=== PATIENT | female | born 1975 | race Caucasian/White ===

== ENCOUNTER → 2018-02-07 09:47 | Outpatient (CLI) | payer MEDICAID, SELFPAY ==
[2018-02-07 10:46] LABS: AST(SGOT) 19 U/L (15-37); Alanine Aminotransfer ALT/SGPT 20 U/L (13-56); Albumin, Serum 3.7 g/dL (3.2-5.0); Alkaline Phosphatase 54 U/L (45-117); Bilirubin, Direct 0.08 mg/dL (0.00-0.30); Cholesterol 224 mg/dL (200); Globulin 3.4 g/dL (2.2-4.2); High Density Lipoprotein 60 mg/dL; Protein, Total 7.1 g/dL (6.4-8.2); T4 Total, Thyroxin 8.3 ug/dL (4.8-13.9); Thyroid Stim Hormone (TSH) 2.25 uIU/mL (0.358-3.74); Triglycerides 58 mg/dL; Very Low Density Lipoprotein 12 mg/dL (5-40)
== END ==
PROVIDERS: Referring Provider Internal Medicine Cardiovascular Disease; Visit Provider Internal Medicine Cardiovascular Disease
DX: E78.5 Hyperlipidemia, unspecified (principal); R63.5 Abnormal weight gain
CPT/HCPCS: 36415; 80061; 80076; 84436; 84443

== ENCOUNTER → 2018-03-23 10:01 | Outpatient (CLI) | payer MEDICAID, SELFPAY ==
[2018-02-01 10:24] VITALS: BMI 25.8
[2018-03-23 10:48] LABS: Hematocrit 39.3 % (37-47); Hemoglobin 12.8 g/dl (12.0-15.0); Mean Corp Hgb Conc 32.6 g/gl (32-36); Mean Corpuscular Hgb 28.5 pg (27.0-32.0); Mean Corpuscular Volume 87.5 fL (81-99); Mean Platelet Vol. 8.9 fl (6.2-12.0); Platelet Count 301 K/mm3 (150-450); RBC Distribution Width SD 44.8 fl (35.1-43.9); Red Blood Count 4.49 M/mm3 (4.2-5.4); Scan Indicated on CBC? Y/N NO; White Blood Count 3.7 K/mm3 (4.4-11.0)
[2018-03-23 11:25] LABS: Vitamin B12 805 pg/mL (211-911); Vitamin D,25 Hydroxy 38.2 ng/mL (29.95-100.01)
[2018-03-23 11:32] LABS: ALB/GLOB Ratio 1.2 RATIO (0.9-2.4); AST(SGOT) 23 U/L (15-37); Alanine Aminotransfer ALT/SGPT 23 U/L (13-56); Albumin, Serum 4.1 g/dL (3.2-5.0); Alkaline Phosphatase 48 U/L (45-117); Anion Gap 4 (5-15); BUN 10 mg/dL (7-18); BUN/Creat Ratio 11.5 RATIO (10-20); Calcium,Total 8.8 mg/dL (8.5-10.1); Chloride 107 mmol/L (98-107); Creatinine, Serum 0.87 mg/dL (0.55-1.02); EST Glomerular Filtration Rate 76 mL/min (>60); Est Glom Filt Rate - Afr Amer 91 mL/min (>60); Globulin 3.4 g/dL (2.2-4.2); Glucose 71 mg/dL (74-106); Magnesium 2.4 mg/dL (1.6-2.6); Protein, Total 7.5 g/dL (6.4-8.2); Sodium Level 141 mmol/L (136-145)
[2018-03-23 12:29] LABS: Ferritin 16 ng/mL (8-252); Iron 77 ug/dL (50-170); Iron Binding Capacity,Total 384 ug/dL (250-450); PERCENT IRON SATURATION 20.1 % (15.0-55.0)
--- OUTSIDE RECORDS SUMMARY | 2018-05-18 18:31 | XMS RPT_ITS ---
:1975 Author Organization OHIP Care Team Providers Name Role Phone [facility] Primary Care Unavailable NARAYAN FERNÁNDEZ Attending Unavailable Iglesia Browne Attending Unavailable Primay Care Physicia, No Referring Unavailable Iglesia Browne Attending Unavailable Iglesia Browne Referring Unavailable Primay Care Physicia, No Primary Care Unavailable Iglesia Browne Referring Unavailable Primay Care Physicia, No Primary Care Unavailable Artem Estrada Attending Unavailable Iglesia Browne Attending Unavailable Iglesia Browne Referring Unavailable Primay Care Physicia, No Primary Care Unavailable SYDNEY PATEL Attending Unavailable Primay Care Physicia, No Primary Care Unavailable SYDNEY PATEL Referring Unavailable Iglesia Browne Attending Unavailable Iglesia Browne Referring Unavailable Primay Care Physicia, No Primary Care Unavailable Artem Estrada Consulting Unavailable Quigley, Don Attending Unavailable Quigley, Don Primary Care Unavailable NARAYAN FERNÁNDEZ Attending Unavailable PROBLEMS PROBLEMS DATE TYPE CONDITION / CODE ATTENDING STATUS SOURCE 04/03/2018 Active Other disturbances NARAYAN FERNÁNDEZ Active [facility] skin sensation [facility] Other / R20.8(ICD-10) [place] Rep[facility] 04/03/2018 Active Low back pain / NARAYAN FERNÁNDEZ Active [place] M54.5(ICD-10) [facility] Other [place] Repository 04/03/2018 Admitting Unknown / NARAYAN FERNÁNDEZ Active [facility] diagnosis [facility](Unknown[facility] Repository 04/04/2018 Unknown R07.9 - Chest SealArtem moseley Active [facility] pain, unspecified Community / R07.9(ICD-10) Hospital Repository 04/04/2018 Unknown Z12.4 - Encounter Artem Estrada Active [facility] for screening for Community malignant neoplasm [facility] / Repository Z12.4(ICD-10) 03/23/2018 Unknown Z00.00 - Encounter SYDNEY PATEL Active [facility] for general adult [facility] medical Hospital examination Repository without abnormal findings / Z00.00(ICD-10) 03/23/2018 Unknown E55.9 - Vitamin D SYDNEY PATEL Active [facility] deficiency, Community unspecified / Hospital E55.9(ICD-10) Repository 03/23/2018 Unknown Z79.899 - Other SYDNEY PATEL Active [facility] Community (current) drug Hospital therapy / Repository Z79.899(ICD-10) 02/07/2018 Unknown E78.5 - Iglesia Browne Active [facility] Hyperlipidemia, Community unspecified / Hospital E78.5(ICD-10) Repository 02/07/2018 Unknown R63.5 - Abnormal Iglesia Browne Active [facility] weight gain / Community R63.5(ICD-10) Hospital Repository PROCEDURES PROCEDURES No Procedure Records FoundRESULTS RESULTS ED NOTE Observed: 04/03/2018 Status: COMPLETED Source: [place] 1:07 PM CLINIC OTHER CAMPUS REPOSITORY HNO ID: [id number] Author: Susanna Barton) ARIELLE Blackburn Service: Emergency Medicine Author Type: Registered Nurse Type: ED Notes Filed: 04/03/2018 1:08 PM Note Text: No change in assessment CHEST 2 VIEWS Observed: 04/03/2018 Status: F Source: [facility] 10:20 AM HEALTH SYSTEM REPOSITORY Performed at [facility] APPROVED BY: RASHARD GUZMAN MD EXAMINATION: CHEST RADIOGRAPH (2 VIEW FRONTAL & LATERAL) CLINICAL HISTORY: Low back pain for 2 days. MQ: XC2_5 Comparison: None RESULT: Lines, tubes, and devices: None. Lungs and pleura: No consolidation. No pneumothorax. No pleural effusion. Cardiomediastinal silhouette: Normal cardiomediastinal silhouette. Other: No acute osseous abnormality. IMPRESSION: No acute radiographic abnormality. THORACIC SPINE 3 Observed: 04/03/2018 Status: F Source: [employer] 10:20 AM HEALTH SYSTEM REPOSITORY Performed at [facility] APPROVED BY: RASHARD GUZMAN MD TECHNIQUE: THORACIC SPINE 3 VIEWS, LUMBOSACRAL SPINE 2 OR 3 VIEWS HISTORY: Mid-back/T-spine pain, initial exam. Low back pain for 2 days. COMPARISON: None. THORACIC SPINE RESULT: Counting reference: First rib-bearing vertebra is considered T1. There are 12 paired ribs. Thoracic spine alignment on the frontal film is maintained. Visualized pedicles are intact. No fracture or compression deformity is identified. LUMBAR SPINE RESULT: Counting reference: Lumbosacral junction. For the purposes of this report, L4-5 is considered the level of the iliac crest. Vertebral body heights and disc space heights are maintained. No acute fracture is seen. Pedicles appear intact. SI joints are grossly preserved and symmetric. IMPRESSION: NO ACUTE FINDINGS OF THE THORACOLUMBAR SPINE. LUMBOSACRAL SPINE 2 OR Observed: 04/03/2018 Status: F Source: [facility] 3 VIEWS 10:20 AM HEALTH SYSTEM REPOSITORY Performed at [facility] APPROVED BY: RASHARD GUZMAN MD TECHNIQUE: THORACIC SPINE 3 VIEWS, LUMBOSACRAL SPINE 2 OR 3 VIEWS HISTORY: Mid-back/T-spine pain, initial exam. Low back pain for 2 days. COMPARISON: None. THORACIC SPINE RESULT: Counting reference: First rib-bearing vertebra is considered T1. There are 12 paired ribs. Thoracic spine alignment on the frontal film is maintained. Visualized pedicles are intact. No fracture or compression deformity is identified. LUMBAR SPINE RESULT: Counting reference: Lumbosacral junction. For the purposes of this report, L4-5 is considered the level of the iliac crest. Vertebral body heights and disc space heights are maintained. No acute fracture is seen. Pedicles appear intact. SI joints are grossly preserved and symmetric. IMPRESSION: NO ACUTE FINDINGS OF THE THORACOLUMBAR SPINE. CT HEAD W/O CONTRAST Observed: 04/03/2018 Status: F Source: [facility] 10:13 AM HEALTH SYSTEM REPOSITORY Performed at [facility] APPROVED BY: Keron Coley MD EXAMINATION: CT HEAD WITHOUT CONTRAST CLINICAL HISTORY: Leg weakness. Left leg numbness. TECHNIQUE: Axial images without IV contrast were obtained from the vertex to the foramen magnum. MQ: CTBWO_3 CT Dose-Length Product (DLP): 867 mGy*cm CT Dose Reduction Employed: mAs or kVp was manually adjusted based on either the patient size or age. COMPARISON: No prior available. RESULT: Post-operative change: None. Acute change: No evidence of an acute infarct or other acute parenchymal process. Hemorrhage: No evidence of acute intracranial hemorrhage. Mass Lesion / Mass Effect: There is no evidence of an intracranial mass or extraaxial fluid collection. No significant mass effect. Chronic change: None apparent. Parenchyma: There is no significant volume loss. The brain parenchyma is otherwise within normal limits for age. Ventricles: The ventricles are within normal limits of size and configuration for age. Paranasal sinuses and skull base: The visualized paranasal sinuses are grossly clear. The skull base and imaged soft tissues are unremarkable. IMPRESSION: CT head is within normal limits for patient age. ED PROV NOTE Observed: 04/03/2018 Status: COMPLETED Source: [place] 10:11 AM [facility] OTHER CAMPUS REPOSITORY HNO ID: [id number] Author: Ignacio (Blaze Nichols DO Service: Emergency Medicine Author Type: Resident Type: ED Provider Notes Filed: 04/03/2018 7:53 PM Note Text: Attestation signed by Narayan Fernández MD at 04/07/2018 3:29 PM Attending Note I evaluated the patient and personally participated in the swift components. I agree with the resident's findings and plan as documented and have discussed the case and management of the patient's care with the resident. Signature: Narayan Fernández MD Date: 04/07/2018 Time: 3:29 PM ED Provider Note Patient Name: Nader Ba SERVICE DATE: 04/03/18 History Patient presents with: Leg Weakness: pateint arrives ambulatory to triage with complaint of left leg weakness and numbness. also adds that she feels numbness into lower back. no injury or trauma. This is a 42 year old female with PMH of ovarian ca. S/p resection, depression, anxiety presenting to ED d/t multiple complaints of left lumbar paraspinal Pain, left hip pain that radiates into her left groin, and numbness with decreased sensation in her left leg and foot. Patient states that these symptoms started 2 days ago. She denies ever having these symptoms before in the past. Patient states that 3 areas of pain are distinct, that are not related. Paraspinal lumbar pain on the left is a dull cramping type pain, not worse with positioning. Patient describes left hip pain as if somebody tied a tight rope around her hip. Pain radiates into her left groin and vagina. She also states that there is some radiation from her hip into her left chest wall. She endorses left leg and foot numbness with decreased sensation. She denies any difficulty with ambulation. Patient denies any recent trauma. She endorses being fit, however stopped working out for a month and started back last week. She denies any history of strokes or DVTs. She is adopted, so does not know her family history. She denies any uniform weakness or numbness in her left arm and leg. Denies any recent urinary or fecal incontinence. She denies midline lower back pain. She does admit to some recent depressions, worse than usual, due to her 's diagnosis of cancer. PAST MEDICAL HISTORY Diagnosis Date - Ovarian ca (HCC) - Psychiatric disorder anxiety No past surgical history on file. No family history on file. Social History Social History Main Topics - Smoking status: Never Smoker - Smokeless tobacco: Never Used - Alcohol use No - Drug use: No - Sexual activity: Not on file ALLERGIES Allergen Reactions - Ciprofloxacin Hives - Hydrocodone Intolerance Review of Systems Constitutional: Negative for chills and fever. HENT: Negative for congestion and rhinorrhea. Respiratory: Negative for cough and shortness of breath. Cardiovascular: Negative for chest pain and leg swelling. Gastrointestinal: Negative for abdominal pain, constipation, diarrhea, nausea and vomiting. Genitourinary: Negative for dysuria and hematuria. Musculoskeletal: Positive for back pain. Negative for arthralgias and myalgias. Skin: Negative for rash and wound. Neurological: Positive for weakness and numbness. Negative for dizziness, light-headedness and headaches. Psychiatric/Behavioral: Negative for confusion and suicidal ideas. All other systems reviewed and are negative. Physical Exam BP 132/83 Pulse 60 Temp (Src) 98.1 (Oral) Resp 16 Ht 5' 8 (1.73m) Wt 159 lb (72.1kg) SpO2 100% BMI 24.18 kg/(m2). Physical Exam Constitutional: She is oriented to person, place, and time. She appears well-developed and well-nourished. No distress. HENT: Head: Normocephalic and atraumatic. Eyes: Conjunctivae and EOM are normal. Neck: Normal range of motion. Neck supple. Cardiovascular: Normal rate and regular rhythm. Pulmonary/Chest: Effort normal. No stridor. No respiratory distress. Abdominal: Soft. She exhibits no distension. There is no tenderness. Musculoskeletal: Normal range of motion. She exhibits no edema or deformity. Neurological: She is alert and oriented to person, place, and time. She has normal reflexes. She displays no atrophy and no tremor. A sensory deficit (4/5 on left foot dorsal and plantar surface. 5/5 right foot) is present. No cranial nerve deficit (chronic right eye brow weakness). She exhibits abnormal muscle tone (left dorsiflexion minimally decreased). She displays a negative Romberg sign. She displays no seizure activity. Coordination and gait normal. GCS eye subscore is 4. GCS verbal subscore is 5. GCS motor subscore is 6. She displays no Babinski's sign on the right side. She displays no Babinski's sign on the left side. Skin: Skin is warm and dry. No rash noted. She is not diaphoretic. Psychiatric: She has a normal mood and affect. Thought content normal. Diagnostic Testing ED Labs Ordered and Reviewed - No data to display Procedures ED Course / Clinical Impression ED Course as of Apr 03 1951 Ignacio (Joseph) Magdalena's Documentation Sun Apr 03, [address] Lopez recomends outpatient follow up 1946 WBC: (!) 3.82 Clinical Impressions as of Apr 03 1951 Decreased sensation of leg Acute left-sided low back pain, with sciatica presence unspecified MDM / Disposition / Plan This is a 42-year-old female with past medical history of ovarian cancer status post resection, depression anxiety presenting ED due to multiple complaints of left lumbar paraspinal pain, left hip pain that radiates into the left groin, and numbness with decreased sensation in her left leg and foot. Patient presents today with brought in vague symptoms. Her symptoms could include anything from muscle strain all the way up to metastatic disease or autoimmune demyelinating disorder. Workup included CBC, BMP, UA, ESR, CRP, x-ray of thoracic and lumbar spine, CT head. X-ray of thoracic and lumbar spine were ordered in order to look for any metastases to spinal column. CT head ordered to look for any lesions indicative of multiple sclerosis. X-ray of thoracic lumbar spine unremarkable for any acute pathology. CT of brain negative for any intracranial pathology. Labwork only remarkable for a white blood cell count of 3.82, however patient states that she has a history of a low white count. White count is only borderline low at 3.82, with low end of normal being 3.98. Neurology was consulted and 50 recommended patient be admitted or observed for MRI. Neurologist was unimpressed with patient's physical exam states that this is not an emergent symptom. Neurologist recommends patient be seen in outpatient setting for MRI. Patient was given referral to neurologist and told to follow-up. Patient agrees to plan and is happy with that as well. Update: Upon discharge, patient states that when lying in left lateral, position she fells a pain in her left buttocks that travels posterior aspect of her thigh. This indicative of appear former syndrome or sciatica. I told patient to make sure she mentioned this when she followed up with neurology as as a potential cause of her symptoms. Patient discharged home. On discharge patient is hemodynamically stable and in no acute distress. DispositionThe patient was discharged. Condition at disposition is stable and unchanged. SIGNATURE: Ignacio Nichols DO Attending Note I evaluated the patient and personally participated in the swift components. I agree with the resident's findings and plan as documented and have discussed the case and management of the patient's care with the resident. 42-year-old female comes in for 2 days of left leg pain and weakness. patient states that her leg just feels weaker than normal. Also having some numbness. She states it feels like is a band wrapped around the proximal part of her leg. Denies any trauma to it no previous episodes. She states she has a remote history of ovarian cancer and had to go through chemotherapy when she was 14 years old. No problems since then but she also states she has not followed up with any doctors in many years. Denies any fevers or chills no sick contacts no headache no blurry vision no weakness in arms. on exam vital signs reviewed heart regular rate and rhythm lungs clear to auscultation abdomen is soft nontender normal bowel sounds. Upper extremity is for joint distal pulses and sensation intact. Fernández from his pharyngeal distal pulses intact strength 5 out of 5 in both leg lower extremities there is slight trembling in the left lower extremity 1 strength testing the strength was 5 out of 5 but the right leg did have some contractions. Sensation was slightly different with sharp as well as pressure sensation in the lower extremity. Signature: Narayan Fernández MD Date: 04/03/2018 Time: 3:24 PM Ignacio Nichols DO Resident 04/03/18 195 Narayan Fernández MD 04/07/18 1529 URINALYSIS ROUTINE Collected: 04/03/2018 Status: F Source: [facility] 10:10 AM HEALTH SYSTEM REPOSITORY TYPE CODE TESTS RESULT OUT OF REFERENCE UNITS RANGE LAB COLOR(LOIN C) Urine Color YELLOW LAB APPUR(LOIN C) Urine Appearance CLOUDY LAB GLUUR(LOIN Negative mg/dL C) Glucose Urine NEGATIVE LAB KETON(LOIN Negative mg/dL C) Ketone Urine NEGATIVE LAB HGBUR(LOIN Negative C) Hemoglobin,Urine NEGATIVE LAB PROTU(LOIN Negative mg/dL C) Protein Urine NEGATIVE LAB NITRI(LOIN Negative C) Nitrites Urine NEGATIVE LAB BILIU(LOIN Negative C) Bilirubin Urine NEGATIVE LAB SPG(LOINC) 1.005-1.030 Specific [place], Ur 1.004 LAB PHUR(LOINC 5.0-8.0 ) pH,Urine 7.5 LAB UROBI(LOIN 0.0-1.0 EU/dL C) Urobilinogen,Ur 0.2 LAB LEUKO(LOIN Negative C) Leukocytes NEGATIVE Esterase LAB RBCU1(LOIN 0.0-5.0 /hpf C) RBC,Urine 1.3 LAB WBCU1(LOIN 0.0-5.0 /hpf C) WBC, Urine 1.0 LAB EPIT1(LOIN 0.0-5.0 /hpf C) Ep Cells Urine 4.2 LAB BACT1(LOIN None C) Bacteria Urine NONE LAB HYCA1(LOIN 0.0-1.0 /lpf C) Hyaline Cast 0.0 Performed By: #### URIN2 #### [place] [address] HEMOGRAM/DIFF Collected: 04/03/2018 Status: F Source: [facility] 10:10 AM HEALTH SYSTEM REPOSITORY TYPE CODE TESTS RESULT OUT OF REFERENCE UNITS RANGE LAB WBC(LOINC) 3.98-10.04 thou/cmm Low WBC 3.82 LAB RBC(LOINC) 3.93-5.22 mil/cmm RBC 4.82 LAB HGB(LOINC) 11.2-15.7 g/dL Hgb 13.9 LAB HCT(LOINC) 34.1-44.9 % Hct 42.8 LAB MCV(LOINC) 79.4-94.8 fl MCV 88.8 LAB MCH(LOINC) 25.6-32.2 pg MCH 28.8 LAB MCHC(LOINC 31.6-34.8 % ) MCHC 32.5 LAB RDW(LOINC) 11.7-14.4 % RDW 13.6 LAB RDWSD(LOIN 36.4-46.3 fl C) RDW SD 44.1 LAB PLT(LOINC) 182-369 thou/cmm Platelet 317 LAB MPV(LOINC) 9.4-12.3 fl MPV 9.9 LAB SEG(LOINC) % Seg Neutrophil 57.8 LAB IGRE(LOINC % ) Immature Grans 0.30 LAB LYMPH(LOIN % C) Lymphocyte 30.4 LAB MNO(LOINC) % Monocyte 7.6 LAB EOSIN(LOIN % C) Eosinophil 3.1 LAB BASO(LOINC % ) Basophil 0.8 LAB SEGN(LOINC 1.56-6.13 thou/cmm ) Abs. Neut (ANC) 2.21 LAB IGAB(LOINC 0.00-0.05 thou/cmm ) Abs Immature Grans 0.01 LAB LYMN(LOINC 1.18-3.74 thou/cmm ) Low Abs. Lymph 1.16 LAB MONON(LOIN 0.27-0.70 thou/cmm C) Abs. [place] 0.29 LAB EOSN(LOINC 0.00-0.31 thou/cmm ) Abs. Eosin 0.12 LAB BASON(LOIN 0.01-0.08 thou/cmm C) Abs. Baso 0.03 Performed By: #### CBCD1 #### [place] [address] BASIC PANEL Collected: 04/03/2018 Status: F Source: [facility] 10:10 AM HEALTH SYSTEM REPOSITORY TYPE CODE TESTS RESULT OUT OF REFERENCE UNITS RANGE LAB NA(LOINC) 136-145 mEq/L Sodium Blood 139 LAB K(LOINC) 3.5-5.1 mEq/L Potassium Blood 3.9 LAB CL(LOINC) 98-107 mEq/L Chloride Blood 106 LAB CO2(LOINC) 21-32 mEq/L CO2 Blood 29 LAB GLU(LOINC) 70-99 mg/dL Glucose Blood 95 LAB BUN(LOINC) 7-18 mg/dL BUN Blood 9 LAB CREA(LOINC 0.51-0.95 mg/dL ) Creatinine Blood 0.79 LAB CA(LOINC) 8.5-10.1 mg/dL Calcium Blood 8.9 LAB ANGAP(LOIN 8-16 C) Anion Gap 8 Performed By: #### P8 #### [facility] [address] [place] [address] MDRD GFR Collected: 04/03/2018 Status: F Source: [facility] 10:10 AM HEALTH SYSTEM REPOSITORY TYPE CODE TESTS RESULT OUT OF RANGE REFERENCE UNITS LAB GFRFN(LOINC >60mL/min/1.73m ) 2 eGFR >60 Result Comment: If the patient is , multiply the result by 1.210. Performed By: #### GFR #### [facility] [address] [place] [address] CRP Collected: 04/03/2018 Status: F Source: [facility] 10:10 AM HEALTH SYSTEM REPOSITORY TYPE CODE TESTS RESULT OUT OF RANGE REFERENCE UNITS LAB CRP3(LOINC) 0.00-0.30 mg/dL CRP < 0.29 Performed By: #### CRP3 #### [facility] [address] [place] [address] SED RATE Collected: 04/03/2018 Status: F Source: [facility] 10:10 AM HEALTH SYSTEM REPOSITORY TYPE CODE TESTS RESULT OUT OF RANGE REFERENCE UNITS LAB ESR(LOINC) 0-20 mm/hr Sed Rate 4 Performed By: #### ESR #### [place] [address] ED NOTE Observed: 04/03/2018 Status: COMPLETED Source: [place] 10:10 AM [facility] OTHER [place] REPOSITORY HNO ID: [id number] Author: Susanna Blackburn RN Service: Emergency Medicine Author Type: Registered Nurse Type: ED Notes Filed: 04/03/2018 10:11 AM Note Text: Urine and blood sent. Pt taken to radiology by [facility] ED NOTE Observed: 04/03/2018 Status: COMPLETED Source: [place] 10:07 AM [facility] OTHER CAMPUS REPOSITORY HNO ID: [id number] Author: Susanna Blackburn RN Service: Emergency Medicine Author Type: Registered Nurse Type: ED Notes Filed: 04/03/2018 10:08 AM Note Text: Ct called, aware of xrays afterward ED NOTE Observed: 04/03/2018 Status: COMPLETED Source: [place] 9:37 AM [facility] OTHER CAMPUS REPOSITORY HNO ID: [id number] Author: Susanna Blackburn RN Service: Emergency Medicine Author Type: Registered Nurse Type: ED Notes Filed: 04/03/2018 9:37 AM Note Text: Dr. Nichols in with patient ED NOTE Observed: 04/03/2018 Status: COMPLETED Source: [place] 8:57 AM CLINIC OTHER CAMPUS REPOSITORY O ID: [id number] Author: Aida (Rn) ARIELLE Quiroz Service: (none) Author Type: Registered Nurse Type: ED Notes Filed: 04/03/2018 8:57 AM Note Text: Bed: 28-ED Expected date: Expected time: Means of arrival: Comments: Open at 0900 ECHOCARDIOGRAM COMPLETE Observed: 03/31/2018 Status: F Source: [place] 10:41 AM [facility] REPOSITORY [facility] Cardiovascular Services [address] [place] [address] Echo Complete 03/30/18 0803 MR#: [id number] Acct: [id number] Name: NADER BA Rep #: [id number] : 1975 42 From: Iglesia Browne MD Attending Dr: Artem Estrada MD Status: REG CLI Ordering Dr: Iglesia Browne MD Date: 03/30/18 [facility] C Admitted: Reason For Study: CHEST PAIN Procedure This was a 2D Doppler, Color Flow transthoracic echocardiogram. Exam performed in department. Left Ventricle Normal size and thickness. The estimated ejection fraction is 65 %. Stage 1 diastolic dysfunction. No regional wall motion abnormalities noted. Right Ventricle Normal size and thickness. Normal systolic function. Atria Normal left atrium. Normal right atrium. Normal atrial septum. Mitral Valve The mitral valve is structurally normal. No prolapse or stenosis seen. Tricuspid Valve Normal tricuspid valve. Trivial tricuspid valve insufficiency. Right ventricular systolic pressure estimated to be 22 mmHg. Aortic Valve Normal aortic valve. Trisinus/trileaflet aortic valve. Pulmonic Valve Normal pulmonic valve. Great Vessels Normal aortic root. Normal arch. Normal inferior vena cava. Inferior vena cava collapse with sniff. Pericardium/Pleural No pericardial effusion. MMode/2D Measurements AND Calculations LVIDd: 4.5 cm IVSd: 0.89 cm Ao root diam: 3.3 cm LVIDs: 3.0 cm LVPWd: 0.91 cm LA dimension: 3.2 cm RVDd: 3.4 cm FS: 34.1 % LAV(MOD-bp): 43.3 ml LA A4 area: 15.3 cm2 RA A4 area: 15.4 cm2 LAV(MOD-bp) Indexed: 22.7 ml/m2 LAV(MOD-sp2): 43.7 ml LAV(MOD-sp4): 43.4 ml Time Measurements MV dec time: 0.24 sec Doppler Measurements AND Calculations MV E max kyrie: 47.0 cm/sec Lat Peak E' Kyrie: 9.9 cm/sec Med Peak E' Kyrie: 10.6 cm/sec MV A max kyrie: 59.6 cm/sec E/E' lat: 4.8 E/E' med: 4.4 MV E/A: 0.79 Ao V2 max: 123.4 cm/sec LV V1 max: 102.2 cm/sec PA V2 max: 91.0 cm/sec Ao max P.1 mmHg LV V1 max P.2 mmHg TR max kyrie: 206.0 cm/sec TR max P.0 mmHg Interpretation Summary The estimated ejection fraction is 65 %. Stage 1 diastolic dysfunction. Trivial tricuspid valve insufficiency. Right ventricular systolic pressure estimated to be 22 mmHg. There is no comparison study available. Ordering Physician: Iglesia Browne Referring Physician: NO PCP Performed By: Florina Julian RDCS, RVT 03/31/18 1040 Date Iglesia Browne MD CC: No Primary Care Physician; Iglesia Browne MD; Artem Estrada MD Date Dictated: 03/30/18 08 Date Transcribed: 03/31/18 104 Military Technology Specialist: Signed PAP I-G W/RFX HRHPV Collected: 03/30/2018 Status: F Source: [place] 9:15 AM [facility] REPOSITORY Order Comment: CYTOLOGY INFORMATION: - CLINICAL INFORMATION: - DATE LMP/MENOPAUSE: 03/23/18 LMP - COLLECTION VIAL: Thin Prep Vial - CHILD WELFARE MANAGER SOURCE: CERVICAL/ENDOCERVICAL - COLLECTION TECHNIQUE: BRUSH/SPATULA Specimen Comment: [id number] Specimen Comment: Source.............Cervix;Endocervix Specimen Comment: LMP / Prev Treat...[id number]=[id number] Specimen Comment: No. of containers..01 ThinPrep Vial TYPE CODE TESTS RESULT OUT OF RANGE REFERENCE UNITS LAB L7400.0800 . Normal DIAGN Comment Result Comment: NEGATIVE FOR INTRAEPITHELIAL LESION AND MALIGNANCY. LAB L7400.0900 . Normal ADEQ Comment Result Comment: Satisfactory for evaluation. Endocervical and/or squamous metaplastic cells (endocervical component) are present. LAB L7400.1400 . Normal PERFORM Comment Result Comment: Smiley Josue, Snow Technician (ASCP) LAB L7400.2575 . Normal TEST METHOD Comment Result Comment: This liquid based ThinPrep(R) pap test was screened with the use of an image guided system. LAB L7400.2600 . Normal . COMM LAB L7400.2700 . Normal PAPSMR Comment Result Comment: The Pap smear is a screening test designed to aid in the detection of premalignant and malignant conditions of the uterine cervix. It is not a diagnostic procedure and should not be used as the sole means of detecting cervical cancer. Both false-positive and false-negative reports do occur. LAB L7400.2800 . Normal HPV RFLX Comment Result Comment: The HPV DNA reflex criteria were not met with this specimen result therefore, no HPV testing was performed. Performed at: - [facility] [id number] Long Term Care Administrator: Stephany Meneses MD, Phone: [phone] Performed By: #### L7400.0350 #### [facility] (refer to report for specific site) refer to report for address and phone number CBC-COMPLETE BLOOD CNT Collected: 03/23/2018 Status: F Source: [place] NO DIFF 10:13 AM [facility] REPOSITORY TYPE CODE TESTS RESULT OUT OF RANGE REFERENCE UNITS LAB L100.1000 4.4-11.0 K/mm3 Low WBC 3.7 LAB L100.1200 4.2-5.4 M/mm3 Normal RBC 4.49 LAB L100.1300 12.0-15.0 g/dl Normal HGB 12.8 LAB L100.1400 37-47 % Normal HCT 39.3 LAB L100.1500 81-99 fL Normal MCV 87.5 LAB L100.1600 27.0-32.0 pg Normal MCH 28.5 LAB L100.1700 32-36 g/gl Normal MCHC 32.6 LAB L100.1810 11.6-14.6 % Normal RDW CV 14.0 LAB L100.1820 35.1-43.9 fl High RDW SD 44.8 LAB L100.1900 150-450 K/mm3 Normal PLT 301 LAB L100.2000 6.2-12.0 fl Normal MPV 8.9 Performed By: #### L100.0500 #### [facility] [address] [place], [place], [address] VITAMIN B12 Collected: 03/23/2018 Status: F Source: [place] 10:13 AM [facility] REPOSITORY TYPE CODE TESTS RESULT OUT OF RANGE REFERENCE UNITS LAB L503.0105 211-911 pg/mL Normal Vitamin B12 805 Performed By: #### L503.0105, L506.1000 #### [facility] [address] [place], [place], [address] VITAMIN D,25 HYDROXY Collected: 03/23/2018 Status: F Source: [place] 10:13 AM [facility] REPOSITORY TYPE CODE TESTS RESULT OUT OF RANGE REFERENCE UNITS LAB L506.1000 29.95-100.01 ng/mL Normal Vitamin D 38.2 25-OH Result Comment: Vitamin D 25(OH) Status Range Deficiency <20 ng/mL (50nmol/L) Insuffciency 20 - 30 ng/mL (50 - 75 nmol/L) Sufficiency 30 - 100 ng/mL (75 - 250 nmol/L) Toxicity >100 ng/mL (>250 nmol/L) Performed By: #### L503.0105, L506.1000 #### [facility] [address], [address] COMPREHENSIVE METABOLIC Collected: 03/23/2018 Status: F [facility] REPOSITORY Order Comment: Is Patient Taking Vitamins or Folic Acid Supplements? N TYPE CODE TESTS RESULT OUT OF RANGE REFERENCE UNITS LAB L501.0100 74-106 mg/dL Low GLU 71 Result Comment: Please note revised GLUCOSE reference range effective 2017. LAB L501.1000 7-18 mg/dL Normal BUN 10 LAB L501.1100 0.55-1.02 mg/dL Normal CREAT,SERUM 0.87 Result Comment: The validity of the calculated GFR AND GFRAA in patients over 70 years has not been determined. Clinical correlation is essential. LAB L501.1110 >60 mL/min Normal EST GFR 76 Result Comment: Non- GFR Calc LAB L501.1115 >60 mL/min Normal EST GFR - AA 91 Result Comment: GFR Calc LAB L501.1300 10-20 RATIO Normal BUN/CRE 11.5 LAB L501.1500 6.4-8.2 g/dL T Normal PROT 7.5 LAB L501.1800 3.2-5.0 g/dL Normal ALB 4.1 LAB L501.1950 2.2-4.2 g/dL Normal GLOB 3.4 LAB L501.2000 0.9-2.4 RATIO Normal A/G 1.2 LAB L501.2200 8.5-10.1 mg/dL CA Normal 8.8 LAB L501.4100 15-37 U/L Normal AST 23 LAB L501.4305 45-117 U/L Normal ALK P 48 LAB L501.4405 13-56 U/L Normal ALT 23 LAB L501.4600 0.20-1.00 mg/dL T Normal BILI 0.30 LAB L501.5300 136-145 mmol/L NA Normal 141 LAB L501.5600 3.5-5.1 mmol/L K Normal 4.0 LAB L501.5900 98-107 mmol/L CL Normal 107 LAB L501.6100 21.0-32.0 mmol/L Normal CO2 30.0 LAB L501.6200 5-15 Low GAP 4 Performed By: #### L500.4050, L501.5200, L506.0250, L503.6030, L503.6550 #### [facility] [address], [place], [id number] MAGNESIUM Collected: 03/23/2018 Status: F Source: [place] 10:13 AM [facility] REPOSITORY Order Comment: Is Patient Taking Vitamins or Folic Acid Supplements? N TYPE CODE TESTS RESULT OUT OF RANGE REFERENCE UNITS LAB L501.5200 1.6-2.6 mg/dL Normal MG 2.4 Performed By: #### L500.4050, L501.5200, L506.0250, L503.6030, L503.6550 #### [facility] [address], [place], [address] FOLATES, (FOLIC ACID) Collected: 03/23/2018 Status: F Source: [place] 10:13 AM [facility] REPOSITORY Order Comment: Is Patient Taking Vitamins or Folic Acid Supplements? N TYPE CODE TESTS RESULT OUT OF RANGE REFERENCE UNITS LAB L506.0250 3.1-55.4 ng/mL Normal FOLATES 31.30 Performed By: #### L500.4050, L501.5200, L506.0250, L503.6030, L503.6550 #### [facility] [address] [place], [address] IRON+IRON BINDING Collected: 03/23/2018 Status: F Source: [facility] 10:13 AM [facility] REPOSITORY Order Comment: Is Patient Taking Vitamins or Folic Acid Supplements? N TYPE CODE TESTS RESULT OUT OF RANGE REFERENCE UNITS LAB L503.6075 250-450 ug/dL TIBC Normal 384 LAB L503.6150 50-170 ug/dL IRON Normal 77 LAB L503.6250 15.0-55.0 % IRON Normal SATURATION 20.1 Performed By: #### L500.4050, L501.5200, L506.0250, L503.6030, L503.6550 #### [facility] [address] [place], [address] FERRITIN Collected: 03/23/2018 Status: F Source: [place] 10:13 AM [facility] REPOSITORY Order Comment: Is Patient Taking Vitamins or Folic Acid Supplements? N TYPE CODE TESTS RESULT OUT OF RANGE REFERENCE UNITS LAB L503.6550 8-252 ng/mL Normal FERRITIN 16 Performed By: #### L500.4050, L501.5200, L506.0250, L503.6030, L503.6550 #### [facility] [address] [place], [address] OFFICE VISIT (URGENT Observed: 02/26/2018 Status: UNK Source: [facility]) 11:10 AM [facility]IT[facility] REPOSITORY Chief Complaint Dental Pain Dental pain times one to 2 days History of Present Illness 42-year-old female with complaint of left upper dental pain times one to 3 days. She denies any trauma. Patient states she is scheduled for a dental procedure. Patient denies any swelling however does h ave pain in his concerned regarding infection with a at home with newly diagnosed cancer. [facility] presents with complaints of dental pain. Associated symptoms include dental pain in a single tooth and inflamed gums, but no bleeding gums, no purulent discharge, no temperature sensitivity, no buccal mucosal irritation, no facial swelling, no fever, no headache, no sore throat, no swollen glands, no ear pain and no sinus pain. Social History Former smoker (V15.82) (Z87.687) Allergies Cipro Recorded By: Marianna Frias; 02/26/2018 10:36:39 AM Current Meds BuSpar 10 MG TABS (BusPIRone HCl); Therapy: (Recorded:26Feb2018) to Recorded Dispense: 0 Days ; #: Sufficient TABS; Refill: 0; JEREMIAS = N; Record; Last Updated By: Marianna Frias; 02/26/2018 10:36:39 AM Wellbutrin 100 MG TABS (BuPROPion HCl); Therapy: (Recorded:26Feb2018) to Recorded Dispense: 0 Days ; #: Sufficient TABS; Refill: 0; JEREMIAS = N; Record; Last Updated By: Marianna Frias; 02/26/2018 10:36:39 AM Vitals Vital Signs Recorded: 26Feb2018 10:34AM Sgzzrpibcxv63 F, Oral Heart Rate69 Vpxmjpzrfef32 Oeqdlvyz479 Saiqvpfue80 O2 Ryvpjytchy625, RA Pain Scale8 Physical Exam Constitutional: vital signs reviewed. Well developed, well nourished. patient alert and patient without distress. Head and Face: Head and face: Normal. Eyes: Normal external exam - pupils were equal in size, round, reactive to light (PERRL) with normal accommodation and extraocular movements intact (EOMI). Ears, Nose, Mouth, and Throat: Lips, teeth, and gums: Normal. No evidence of periodontal disease. Diagnoses/Problems Pain, dental (525.9) (K08.89) Orders Pain, dental Start: Meloxicam 15 MG Oral Tablet; TAKE 1 TABLET DAILY NEEDED Rx By: Jin Barahona; Dispense: 7 Days ; #:7 Tablet; Refill: 0;For: Pain, dental; JEREMIAS = N; Sent To: [facility] Start: Penicillin V Potassium 500 MG Oral Tablet; TAKE 1 TABLET 4 TIMES DAILY UNTIL GONE Rx By: Jin Barahona; Dispense: 10 Days ; #:40 Tablet; Refill: 0;For: Pain, dental; JEREMIAS = N; Sent To: [facility] Patient Discussion/Summary Medications as recommended No anti-inflammatories Follow-up with dentist as soon as possible Any worsening go directly to the emergency room End of Encounter Meds BuSpar 10 MG TABS (BusPIRone HCl); Therapy: (Recorded:26Feb2018) to Recorded Meloxicam 15 MG Oral Tablet; TAKE 1 TABLET DAILY NEEDED; Therapy: 26Feb2018 to (Evaluate:05Mar2018); Last Rx:26Feb2018 Ordered Penicillin V Potassium 500 MG Oral Tablet; TAKE 1 TABLET 4 TIMES DAILY UNTIL GONE; Therapy: 26Feb2018 to (Evaluate:08Mar2018); Last Rx:26Feb2018 Ordered Wellbutrin 100 MG TABS (BuPROPion HCl); Therapy: (Recorded:26Feb2018) to Recorded Signatures Electronically signed by : Jin Barahona MD; Feb 26 2018 11:10AM EST (Author) LIVER PROFILE Collected: 02/07/2018 Status: F Source: [place] 9:54 AM [facility] REPOSITORY TYPE CODE TESTS RESULT OUT OF RANGE REFERENCE UNITS LAB L501.1500 6.4-8.2 g/dL Normal T PROT 7.1 LAB L501.1800 3.2-5.0 g/dL Normal ALB 3.7 LAB L501.1950 2.2-4.2 g/dL Normal GLOB 3.4 LAB L501.4100 15-37 U/L Normal AST 19 LAB L501.4305 45-117 U/L Normal ALK P 54 LAB L501.4405 13-56 U/L Normal ALT 20 LAB L501.4600 0.20-1.00 mg/dL Normal T BILI 0.30 LAB L501.4700 0.00-0.30 mg/dL Normal D BILI 0.08 Performed By: #### L500.3400, L500.4100, L501.9310, L501.9520 #### [facility] [address] [place], [place], [id number] LIPID PROFILE Collected: 02/07/2018 Status: F Source: [place] 9:54 AM [facility] REPOSITORY TYPE CODE TESTS RESULT OUT OF RANGE REFERENCE UNITS LAB L501.4900 200 mg/dL High CHOL 224 Result Comment: <200 mg/dL Desirable 200-240 mg/dL Borderline >240 mg/dL High Risk LAB L501.5000 mg/dL Normal TRIG 58 Result Comment: The drugs N-Acetylcysteine and Metamizole may falsely depress this assay. Serum Triglycerides Reference Interval Normal <150 mg/dL Borderline high 150 - 199 mg/dL High 200 - 499 mg/dL Very High > or = 500 mg/dL LAB L501.6400 mg/dL Normal HDL 60 Result Comment: The drugs N-Acetylcysteine and Metamizole may falsely depress this assay. Reference Range HDL <40 mg/dL Low HDL Cholesterol HDL >or= 60 mg/dL High HDL Cholesterol LAB L501.6500 0-130 mg/dL High LDL 152 LAB L501.6600 5-40 mg/dL Normal VLDL 12 Performed By: #### L500.3400, L500.4100, L501.9310, L501.9520 #### [facility] [address] [place], [place], [address] T4 TOTAL, THYROXIN Collected: 02/07/2018 Status: F Source: [place] 9:54 AM [facility] REPOSITORY TYPE CODE TESTS RESULT OUT OF RANGE REFERENCE UNITS LAB L501.9310 4.8-13.9 ug/dL T4 Normal THYROXIN 8.3 Performed By: #### L500.3400, L500.4100, L501.9310, L501.9520 #### [facility] [address] [place], [place], [address] THYROID STIM HORMONE Collected: 02/07/2018 Status: F Source: [place] (TSH) 9:54 AM [facility] REPOSITORY TYPE CODE TESTS RESULT OUT OF RANGE REFERENCE UNITS LAB L501.9520 0.358-3.74 uIU/mL Normal TSH 2.25 Performed By: #### L500.3400, L500.4100, L501.9310, L501.9520 #### [facility] [address] [place], [address] CARDIOLOGY VISIT Observed: 02/01/2018 Status: F Source: [place] REPORT 11:02 AM [facility] REPOSITORY [facility] [address] [place] [address] OFFICE VISIT Date of Service: 02/01/18 MR#: [id number] Acct: [id number] Name: NADER BA Rep #: [id number] : 1975 Provider: Iglesia Browne MD Age/Sex: 42/F Location: [facility] Status: Signed HPI HPI Chief Complaint: Routine f/u Details: NADER BA, is a 42 F with a history of migraine headaches, depression, anxiety, GERD, who presents to the office today for evaluation of atypical nonexertional chest pain. Patient has a history of smoking in her teens with 1-2 packs/day for about 5 years and quit around age 20, does not drink alcohol and has no known history of diabetes or coronary disease. She does have a family history in her mother who had CHF at age 60 although she is adopted and has no knowledge of her other parent or siblings. She does have a history of significant anxiety and depression and is currently on Wellbutrin. She has never been and has no children. Patient has recently relocated from [place] with her , about a month and a half ago, and he has recently been diagnosed with squamous cell cancer of the throat and is going to require either radiation, chemotherapy or surgery. Patient is under a significant amount of stress at this time but ironically has had less chest pain then she had starting 1 year ago. About a year ago she developed atypical nonexertional chest pressure which she described as deep pressure with no associated symptoms but occasionally radiates to between her shoulder blades Patient runs and exercises quite aggressively, and occasionally gets chest pain after jogging 10 miles. She recently joined a gym in order to try and dissipate the stress, and ironically does not get chest pain when she exerts herself. She is compliant with her medications. In our office her blood pressure is 120/60, pulse is 84 and regular. Her physical exam demonstrates clear lungs bilaterally, regular rate and rhythm, normal S1/S2, no S3 or S4. She has no edema. Her lipids and TSH are pending. EKG today demonstrates normal sinus rhythm, normal axis, normal intervals, no previous myocardial infarction noted. 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 Is patient in pain?: No Allergies ciprofloxacin [From Cipro] Allergy (Severe, Verified 02/01/18 10:31) Hives, vomiting Medications alprazolam 0.5 mg tablet 0.5 mg PO .COMPLEX 01/28/18 [History Confirmed 01/28/18] bupropion HCl XL 150 mg 24 hr tablet, extended release 150 mg PO QAM 01/28/18 [History Confirmed 01/28/18] PFSH Medical History Hyperlipidemia (Acute) Abnormal weight gain (Acute) Chest pain (Acute) Migraine (Chronic) GERD (gastroesophageal reflux disease) (Chronic) Depression (Chronic) Anxiety (Chronic) Surgical History History of oophorectomy (Chronic) History of ovarian cystectomy (Chronic) Family History Unknown No problems noted. Social History Smoking Status: Never smoker ROS Const Const: Positive for other (Referred self, just moved from [place]. Has GERD but also many stressors, fam hx); negative for fatigue, weakness, body ache, fever(s), headache(s), chills, frequent falls, night sweats, daytime sleepiness, difficulty sleeping, excessive sweating, weight gain, weight loss, increased appetite, poor appetite or anorexia Eyes Eyes: Negative for blind spots, loss of peripheral vision, transient loss of vision, blurry vision, change in vision, double vision, floaters, tunnel vision or other ENT ENT: Negative for dizziness, hearing loss, tinnitus, Nosebleed/epistaxis, balance problems, post nasal drip, lip swelling, tongue swelling, bleeding gums, hoarseness, neck pain, dry mouth, other or headache(s) Cardio Chest Pain: Yes (Not for last 2 weeks though, felt upper epigastric and suprasternal notch) Frequency: other (Notices more when nervous or has a lot on my plate that day) Character: tightness, other (heaviness in upper chest) Relieving: other (spontaneous) Palpitations: Yes (With panic attacks) Edema: None Muscle aches with walking: None Resp Respiratory: Negative for SOB with activity, SOB at rest, SOB orthopnea\SOB lying down, Cough, Coughing up blood/hemoptysis, chest congestion, pain on inspiration, snoring, stridor, wheezing, crackles, paroxysmal nocturnal dyspnea or other GI GI: Negative nausea, vomiting, heartburn, constipation, belching, bloating, cramping, vomiting blood/hematemesis, bright, red blood in stools, black,tarry stools, loose stools, Difficulty Swallowing or other : Negative for hematuria, frequent nighttime urination/ nocturia, erectile dysfunction or abnormal vaginal bleeding Musc Musc: Negative for balance problems, muscle aches/ myalgia, muscle weakness or joint pain Skin Skin: Negative redness, non-healing lesions, rash, unusual bruising, skin ulcer, wounds, jaundice or other Neuro Neuro: Negative for blurry vision, double vision, dizziness, lightheadedness, near syncope, syncope, orthostatic symptoms, confusion, memory loss, restless legs, vertigo, seizures, lack of coordination, other, weakness, headache(s) or frequent falls [place] Hematologic/Lymphatic: Negative for easy bleeding, easy bruising, enlarged lymph nodes or other Endo Endo: Negative for cold intolerance, heat intolerance, flushing, increased thirst/drinking, increased hunger, hair loss, hair growth, other, fatigue or excessive sweating Psych Psych: Negative for anxiety, depression, thoughts of harming anyone, thoughts of harming yourself, visual hallucinations, panic attacks or audible hallucinations Allergy Allergy/Immunology: Negative for lip swelling, Negative for tongue swelling, Negative for rash, Negative for throat swelling, Negative for hives Cardiology Exam Const Appearance: cooperative, healthy appearing and no acute distress Nutritional Appearance: well nourished Orientation: alert, oriented x3 and oriented to person Head Head: normal to inspection, atraumatic and normocephalic Nose: external nose normal Face and Sinus: face symmetric Mouth: oral mucosae normal Eyes General: appearance normal, both eyes and all related structures Eyelids: eyelids normal Conjunctivae: conjunctivae normal Pupils: PERRL and normal by confrontation EOM: EOM intact bilaterally Neck Neck: normal visual inspection and full ROM Carotids: normal carotid upstroke Chest Chest inspection: normal inspection of the chest Auscultation: Bilateral: Clear to Auscultation Cardio Palpation: normal PMI Rate: regular rate Rhythm: regular rhythm Heart sounds: S1 normal and S2 normal GI GI: normal to inspection, no hepatosplenomegaly and bowel sounds present Neuro General: alert, oriented x3, awake, CN's II-XI intact bilaterally and moves all extremities Skin Skin: no rashes or lesions noted Extremities Pulses: Normal: Right Femoral Pulse, Left Femoral Pulse, Right Dorsalis Pedis Pulse, Left Dorsalis Pedis Pulse, Right Posterior Tibial Pulse, Left Posterior Tibial Pulse, Right Radial Pulse, Left Radial Pulse Lower Extremity Edema: None: Bilateral Psych Psychological: normal affect Assessment AND Plan 1. Chest pain R07.9 Plan 1. Atypical chest pain: Patient presents with what appears to be atypical nonexertional chest pain although she does have some risk factors with respect to her mother who had CHF around age 60. I am pleased to hear that her symptoms have gotten better since she has started exercising in order to dissipate the stress that is now in her life. I recommended the patient undergo a 2D echo with Doppler to document her LV function, pulmonary status, and valvular status. In addition I recommend she undergo a treadmill echocardiogram to determine whether she has exertional chest pain symptoms, or any wall motion of normality's. If this is grossly abnormal, the patient may require diagnostic coronary angiogram. If it is negative for inducible ischemia we will treat her for her anxiety with ongoing Wellbutrin and to arrange for possible social work assistance given her recent relocation to [place] as well as dealing with her squamous cell cancer. In addition we will check her TSH, T4, and fasting lipid profile. 2. Return office in 6 months. This note was generated using a voice recognition system and there may be incorrect words, spelling or punctuation that were not noted when reviewing the office note prior to saving. Orders Orders: 2. Hyperlipidemia E78.5 Orders Orders: Plan Detail Other Orders Orders: Follow Up +6M ([place]) Coding Level of Care Code Off vis,new,level 4 Diagnoses Chest pain R07.9 Hyperlipidemia E78.5 Coding Level of Care Code Off vis,new,level 4 Diagnoses Chest pain R07.9 Hyperlipidemia E78.5 02/01/18 1102 <Electronically signed by Iglesia Browne MD> Date Iglesia Browne MD Cosigner Signature: Date (if applicable) CC: No Primary Care Physician 12 LEAD EKG PERFORMED Observed: 02/01/2018 Status: F Source: [place] BY [facility] 10:12 AM [facility] REPOSITORY [facility] [address] [address] 12 Lead EKG performed by [facility] 02/01/18 1012 MR#: [id number] Acct: [id number] Name: NADER BA Rep #: [id number] : 1975 42 From: Iglesia Browne MD Attending Dr: Iglesia Browne MD Status: DEP AMB Ordering Dr: Iglesia Browne MD Date: 02/01/18 Location: [facility] Sex: F C Admitted: BMS/12 Lead EKG performed by [facility] ECG Report Interpretation Sinus Rhythm -RSR(V1) -nondiagnostic. PROBABLY NORMALElectronically signed on 04/08/2018 at 15:30 by Iglesia Browne Software Version [id number] 04/08/18 1531 Date Iglesia Browne MD CC: No Primary Care Physician Date Dictated: 02/01/18 1012 Date Transcribed: 02/01/18 1012 Military Technology Specialist: Signed ALLERGIES ALLERGIES DATE TYPE / NAME / CODE REACTION SEVERITY SOURCE CODE 04/03/2018 DRUG CIPROFLOXACIN HIVES [address] Other [id number]([facility]) Repository 04/03/2018 DRUG HYDROCODONE INTOLERANCE [address] Other [id number]([facility]) Repository 02/01/2018 Drug ciprofloxacin/F0060 Hives, vomiting SV [place] Allergy/41 34045(RXNORM) [facility] [id number]([facility]) Repository NG/[id number] CIPROFLOXACIN [facility] 06([facility] [employer] [facility]) Repository NG/[id number] HYDROCODONE [facility] 06([employer] [facility]) Repository ENCOUNTERS ENCOUNTERS ADMIT/DISCHARGE ACCOUNT NUMBER ADMITTING ENCOUNTER LOCATION SOURCE CLASS 04/03/2018/12/09 [id number] Emergency [address] Other [place] Repository 04/03/2018/04/03/20 [id number] Emergency [address] MEDICAL Repository CENTERBuildi ng:JERRICARoom: EMBed: 28 03/30/2018 [id number] Ambulatory BMSBuilding: [facility] BMS.CF.[facility] Repository 03/30/2018 [id number] Ambulatory [facility] ding:[facility] Repository 03/23/2018 [id number] Ambulatory [facility] ding:LAB.[facility]UT Repository URE 03/08/2018 [id number] Ambulatory [facility] ding:[facility] Repository 02/07/2018 [id number] Ambulatory [facility] ding:PAVLAB Repository 02/07/2018 [id number] [facility]Monisha[facility]AN 02/01/2018/02/02/20 [id number] Ambulatory BMSBuilding: [place]imon [address] Repository PAYERS PAYERS ENCOUNTER GUARANTOR PAYER SUBSCRIBER SOURCE 04/03/2018 NADER P [facility] Corporation[facility]: Insurance:CARESOURCE JORDANDOB: [facility] MEDICAIDPolicy [id number] Number: [place], [place] [id number] [id number]: ([phone]) Date: () 03/30/2018 NADER P Primary NADER P [place] [id number] [place] Insurance:[facility] Number: [id number] [place] [id number] [id number] Repository [address]Tvc: [phone]) Date:2018-02-01P O [phone] () [address]ATTN: [place] [address]AK: 03/30/2018 Secondary NOT GIVENUNK [place] Insurance:SELF PAY [facility] Number: Effective Repository Date:2018-03-30 03/30/2018 NADER P Primary NADER P Hanson [id number] [place] Insurance:CARESOURCEP JORDANDOB: [facility] Number: [id number] [id number] Repository [address]Zcg: [phone]) Date:2018-02-01P O [phone] () [address]ATTN: [place] [address]UA: 03/30/2018 Secondary NOT GIVENUNK Shimon Insurance:SELF PAY [facility] Number: Effective Repository Date:2018-02-01 03/23/2018 NADER P Primary NADER P Hanson [id number] Insurance:CARESOURCEP JORDANDOB: [facility] Number: [id number], [place] [id number] Repository [address]Pur: [phone]) Date:2018-03-22P O [phone] () [address]ATTN: [place] [address]RD: 03/23/2018 Secondary NOT GIVENUNK Hanson Insurance:SELF PAY [facility] Number: Effective Repository Date:2018-03-22 03/08/2018 NADER P Primary NADER P Hanson [id number] Insurance:CARESOURCEP BISMARCKDOB: [facility] Number: [id number] [place], [place] [id number] Repository [address]Dzu: [phone]) Date:2018-02-01 O [phone] () [address]ATTN: [place] [address]CA: 03/08/2018 Secondary NOT GIVENUNK Hanson Insurance:SELF PAY [facility] Number: Effective Repository Date:2018-02-01 02/07/2018 NADER P Primary NADER P Shimon [id number] Insurance:CARESOURCEP JORDANDOB: [facility] Number: [id number] [place], [place] [id number] Repository [address]Vnk: ([phone]) Date:2018-02-07P O [phone] () [address]ATTN: [place] [address]TK: 02/07/2018 Secondary NOT GIVENUNK Shimon Insurance:SELF PAY [facility] Number: Effective Repository Date:2018-02-07 02/07/2018 NADER P Primary NADER [facility] [id number] [place] Insurance:CARESOURCEP [facility] Number: Repository [id number]: [phone] [id number] [phone] () Date:2018-01-24[address], [place] [address]EV: 02/01/2018 NADER Primary NADER Hanson [id number] Insurance:CARESOURCEP BISMARCKDOB: [facility] Number: [id number] [place], [place] [id number] Repository [address]Vkh: [phone]) Date:2018-01-25P O [phone] () [address]ATTN: [place] [address]AH: 02/01/2018 Secondary NOT GIVENUNK Hanson Insurance:SELF PAY [facility] Number: Effective Repository Date:2018-02-01
== END ==
DX: Z00.00 Encounter for general adult medical examination without abnormal findings (principal); E55.9 Vitamin D deficiency, unspecified; D64.9 Anemia, unspecified; Z79.899 Other long term (current) drug therapy
CPT/HCPCS: 36415; 80053; 82306; 82607; 82728; 82746; 83540; 83550; 83735; 85027

== ENCOUNTER → 2018-03-30 08:00 | Outpatient (CLI) | payer MEDICAID, SELFPAY ==
[2018-02-01 10:24] VITALS: BMI 25.8
--- NOTE | 2018-03-30 08:03 | ECHOD_ITS ---
Reason For Study: CHEST PAIN Procedure This was a 2D Doppler, Color Flow transthoracic echocardiogram. Exam performed in department. Left Ventricle Normal size and thickness. The estimated ejection fraction is 65 %. Stage 1 diastolic dysfunction. No regional wall motion abnormalities noted. Right Ventricle Normal size and thickness. Normal systolic function. Atria Normal left atrium. Normal right atrium. Normal atrial septum. Mitral Valve The mitral valve is structurally normal. No prolapse or stenosis seen. Tricuspid Valve Normal tricuspid valve. Trivial tricuspid valve insufficiency. Right ventricular systolic pressure estimated to be 22 mmHg. Aortic Valve Normal aortic valve. Trisinus/trileaflet aortic valve. Pulmonic Valve Normal pulmonic valve. Great Vessels Normal aortic root. Normal arch. Normal inferior vena cava. Inferior vena cava collapse with sniff. Pericardium/Pleural No pericardial effusion. MMode/2D Measurements & Calculations LVIDd: 4.5 cm IVSd: 0.89 cm Ao root diam: 3.3 cm LVIDs: 3.0 cm LVPWd: 0.91 cm LA dimension: 3.2 cm RVDd: 3.4 cm FS: 34.1 % LAV(MOD-bp): 43.3 ml LA A4 area: 15.3 cm2 RA A4 area: 15.4 cm2 LAV(MOD-bp) Indexed: 22.7 ml/m2 LAV(MOD-sp2): 43.7 ml LAV(MOD-sp4): 43.4 ml Time Measurements MV dec time: 0.24 sec Doppler Measurements & Calculations MV E max ykrie: 47.0 cm/sec Lat Peak E' Kyrie: 9.9 cm/sec Med Peak E' Kyrie: 10.6 cm/sec MV A max kyrie: 59.6 cm/sec E/E' lat: 4.8 E/E' med: 4.4 MV E/A: 0.79 Ao V2 max: 123.4 cm/sec LV V1 max: 102.2 cm/sec PA V2 max: 91.0 cm/sec Ao max P.1 mmHg LV V1 max P.2 mmHg TR max kyrie: 206.0 cm/sec TR max P.0 mmHg Interpretation Summary The estimated ejection fraction is 65 %. Stage 1 diastolic dysfunction. Trivial tricuspid valve insufficiency. Right ventricular systolic pressure estimated to be 22 mmHg. There is no comparison study available. Ordering Physician: Iglesia Browne Referring Physician: NO PCP Performed By: Florina Julian, CARLOS, RVT
[2018-04-02 11:37] LABS: HPV Reflexed? NOT INDICATED
== END ==
LOC: CVS 08:02 → LABSPEC 14:03
PROVIDERS: Referring Provider Internal Medicine Cardiovascular Disease; Visit Provider Obstetrics & Gynecology
DX: R07.9 Chest pain, unspecified (principal); Z12.4 Encounter for screening for malignant neoplasm of cervix
CPT/HCPCS: 88175; 93306; G0145

== ENCOUNTER → 2018-04-22 10:23 | Outpatient (CLI) | payer MEDICAID, SELFPAY ==
--- NOTE | 2018-04-22 10:29 | BI_ITS ---
MAMMOGRAPHY - BILATERAL SCREENING 3-D MIKE SYNTHESIS REASON FOR EXAM: Female, 42 years old. Bilateral Screening 3-D tomosynthesis PERTINENT HISTORY: Past history of ovarian cancer at age 14. TECHNIQUE: 2-D mammograms and 3-D Mike synthesis of the breast (s) were performed. CAD was performed. COMPARISON: None. FINDINGS: The breast composition is composed of scattered fibroglandular density. There is an asymmetry in the central portion of the left breast measuring approximately 6 mm seen only on the CC view. This likely represents a small cyst. The patient should return for compression spot views and ultrasound of the left breast. The right breast is normal. BI/SCREENING MAMM (CAD), BILAT IMPRESSION: Asymmetry in the left breast for which further workup is recommended.. ASSESSMENT CATEGORY: BIRADS Category 0: Incomplete. Need additional imaging evaluation as above. A letter regarding these results will be sent to the patient by the facility within 30 days. FOLLOW UP RECOMMENDATION: Additional imaging recommended as above. (E) Approximately 10% of breast cancers are not detected by mammography. A normal mammogram should not delay biopsy of a clinically suspicious abnormality. Electronically Signed: Yimi Randle MD at 11:09 EST , Service support ,
== END ==
PROVIDERS: Visit Provider Obstetrics & Gynecology
DX: Z12.31 Encounter for screening mammogram for malignant neoplasm of breast (principal); N64.89 Other specified disorders of breast
CPT/HCPCS: 77063; 77067

== ENCOUNTER → 2018-04-28 07:32 | Outpatient (CLI) | payer MEDICAID, SELFPAY ==
--- NOTE | 2018-04-28 07:36 | BI_ITS ---
MAMMOGRAPHY - UNILATERAL DIAGNOSTIC: LEFT BREAST REASON FOR EXAM: Female, 42 years old. Abnormal screening mammogram. PERTINENT HISTORY: Non-contributory. TECHNIQUE: Compression spot views of the left breast in the craniocaudad and MLO views were obtained. CAD: Full Field Digital Mammography with Computer Added Detection was performed. COMPARISON: Comparison is made with prior mammogram dated April 22, 2018. FINDINGS: Breast Composition: There are scattered areas of fibroglandular density. Persistent 6 mm nodular density seen in the central left breast on the craniocaudad view. Correlation with ultrasound is recommended. No other significant abnormalities are identified. BI/DIAG MAMM W/CAD, UNILAT IMPRESSION: Persistent 6 mm nodule seen in the central aspect of the left breast on the craniocaudad view. Correlation with ultrasound is recommended. ASSESSMENT CATEGORY: BIRADS Category 0: Incomplete. Need additional imaging evaluation. A letter regarding these results will be sent to the patient by the facility within 30 days. Approximately 10% of breast cancers are not detected by mammography. A normal mammogram should not delay biopsy of a clinically suspicious abnormality. Electronically Signed: Joaquin Escobar MD at 11:14 EST Tel [phone], Service support ,
--- NOTE | 2018-04-28 07:37 | US_ITS ---
STUDY: ULTRASOUND BREAST - LEFT REASON FOR EXAM: Female, 42 years old. 6 mm nodular density in the central portion of the left breast. TECHNIQUE: Axial and longitudinal images of the LEFT breast were performed with a high resolution ultrasound transducer. COMPARISON: Comparison is made with prior mammogram done earlier in the day and prior mammogram dated April 22, 2018. FINDINGS: LEFT Breast: There is a 5 mm x 4 mm x 3 mm well-defined hypoechoic nodule with central increased echotexture with flow in the region of the hilum. This is suggestive of a small lymph node. This is seen at the 5:00 position of the breast at 2 cm from the nipple. US/Breast Limited Unilateral IMPRESSION: The mammographic finding corresponds to a small benign-appearing lymph node. Routine mammographic follow-up is recommended. ASSESSMENT CATEGORY: BIRADS Category 2: Benign. A letter regarding these results will be sent to the patient by the facility within 30 days. Electronically Signed: Joaquin Escobar MD at 11:15 EST Tel [phone], Service support ,
== END ==
PROVIDERS: Visit Provider Obstetrics & Gynecology
DX: N63.20 Unspecified lump in the left breast, unspecified quadrant (principal)
CPT/HCPCS: 76642; 77065

== ENCOUNTER → 2019-01-10 11:24 | Outpatient (CLI) | payer MEDICAID, SELFPAY ==
[2019-01-10 11:28] LABS: Mucous, Urine 0 SEEN /hpf (<or=2+); Red Blood Cells-Urine 0 SEEN /hpf (0-5); White Blood Cells 0 SEEN /hpf (0-5)
[2019-01-10 14:01] LABS: Color, Urine Yellow (Yellow); Glucose, Dipstick Normal (Normal); Ketone-Dipstick Negative (Negative); Leukocyte Esterase-Dipstick Negative /ul (Negative); Nitrite-Dipstick Negative (Negative); Occult Blood-Urine Negative /ul (Negative); Protein-Dipstick Negative (Negative); Urine Bilirubin Dipstick Negative (Negative); Urine Clarity Clear (Clear); Urine Urobilinogen Normal (Normal)
[2019-01-10 14:12] LABS: Bacteria RARE /hpf (None Seen); Squamous Epithelial Cells - UA 0-5 SEEN /hpf (5-10)
[2019-01-11 12:16] LABS: Cancer Antigen 125 7.9 U/mL (0.0-38.1)
== END ==
PROVIDERS: Visit Provider Obstetrics & Gynecology
DX: R10.30 Lower abdominal pain, unspecified (principal); Z85.43 Personal history of malignant neoplasm of ovary
CPT/HCPCS: 36415; 81001; 86304; 87086; 87088

== ENCOUNTER → 2019-01-20 14:25 | Outpatient (CLI) | payer MEDICAID, SELFPAY ==
--- NOTE | 2019-01-20 14:35 | CT_ITS ---
STUDY: CT ABDOMEN AND PELVIS WITH CONTRAST REASON FOR EXAM: Female, 43 years old. Abdominal pain RADIATION DOSAGE (If Supplied By Facility): DLP = ( 507.15 ) mGycm TECHNIQUE: Transaxial images were obtained from the dome of the diaphragm to the symphysis pubis with oral contrast. 100 ml of Readi-CAT and amp; 100mL Isovue-300 contrast was administered. Sagittal and coronal images were reconstructed. Individualized dose optimization techniques were used for this CT. COMPARISON: None. FINDINGS: The visualized lung bases are clear. The visualized portions of the heart and pericardium are within normal limits. There are no calcified gallstones present. The liver is within normal limits. There are no suspicious hepatic lesions. The spleen is normal in size. The pancreas is within normal limits. The adrenal glands are within normal limits. There are no obstructing renal stones. There is no hydronephrosis. There are no focal renal lesions. Normal visualized stomach. There is no bowel obstruction or inflammation. There is prominent stool throughout the colon. The appendix is not visualized, but there are no findings to suggest acute appendicitis. Round smoothly marginated uterine masses are present measuring up to 2.9 cm, not optimally assessed on CT. The aorta is normal in caliber. There is no abdominal or pelvic free air, free fluid, fluid collection or lymphadenopathy. There are no destructive osseous lesions. CT/Abdomen/Pelvis WITH Contrast IMPRESSION: Round smoothly marginated uterine masses measuring up to 2.9 cm, not optimally assessed on CT. These likely represent fibroids, however ultrasound is recommended for further assessment. Prominent stool throughout the colon. Electronically Signed: Davis Alvarez, at 16:24 EDT Tel , Service support ,
== END ==
PROVIDERS: Referring Provider Obstetrics & Gynecology; Visit Provider Obstetrics & Gynecology
DX: K57.92 Diverticulitis of intestine, part unspecified, without perforation or abscess without bleeding (principal); R10.30 Lower abdominal pain, unspecified
CPT/HCPCS: 74177; Q9967

== ENCOUNTER → 2020-03-11 08:32 | Outpatient (CLI) | payer MEDICAID, SELFPAY ==
--- NOTE | 2020-03-11 08:39 | BI_ITS ---
MAMMOGRAPHY - BILATERAL DIAGNOSTIC REASON FOR EXAM: Female, 44 years old. Six-month history of occasional pain in the upper outer quadrant of the left breast. PERTINENT HISTORY: Non-contributory. TECHNIQUE: Digital bilateral breast rodolfo (3D mammographic acquisition) in the CC and MLO projections. 2-D mediolateral oblique (MLO) and craniocaudad (CC) views of both breasts were obtained. CAD: Full Field Digital Mammography with Computer Added Detection was performed. COMPARISON: Comparison is made with prior mammogram dated 04/22/2018. FINDINGS: Breast Composition: The breasts are heterogeneously dense, which may obscure small masses. There are no dominant masses or suspicious calcifications. Stable 5 mm well-defined nodule in the central portion of the left breast. No other significant abnormalities are identified. There has been no significant change since the prior study. BI/DIAG MAMM W/CAD, BILAT IMPRESSION: Stable bilateral diagnostic mammogram. One year follow-up recommended. (A) ASSESSMENT CATEGORY: BIRADS Category 2: Benign. A letter regarding these results will be sent to the patient by the facility within 30 days. Approximately 10% of breast cancers are not detected by mammography. A normal mammogram should not delay biopsy of a clinically suspicious abnormality. Electronically Signed: Joaquin Escobar, at 10:37 EST , Service support ,
--- NOTE | 2020-03-11 08:39 | US_ITS ---
STUDY: ULTRASOUND BREAST - LEFT REASON FOR EXAM: Female, 44 years old. Left breast pain. TECHNIQUE: Axial and longitudinal images of the LEFT breast were performed with a high resolution ultrasound transducer. # OF IMAGES: 36 COMPARISON: Comparison is made with prior sonogram of the left breast dated 04/28/2018 and prior mammogram dated 03/11/2020. FINDINGS: LEFT Breast: There is a 5 mm x 5 mm x 3 mm well-defined hypoechoic nodule at the 5 o''clock position of the breast at 2 cm from nipple. This has the appearance of a benign lymph node. US/Breast Limited Unilateral IMPRESSION: Stable examination. ASSESSMENT CATEGORY: BIRADS Category 2: Benign. A letter regarding these results will be sent to the patient by the facility within 30 days. Electronically Signed: Joaquin Escobar, at 10:39 EST , Service support ,
== END ==
PROVIDERS: Referring Provider Obstetrics & Gynecology; Visit Provider Obstetrics & Gynecology
DX: N64.4 Mastodynia (principal)
CPT/HCPCS: 76642; 77062; 77066; G0279